=== PATIENT | male | born 1945 | race Caucasian/White ===

== ENCOUNTER 2017-05-13 12:15 | Outpatient (CLI) | payer OTHER | END 2017-05-13 12:34 | disposition home or self-care (01) | LOC: LAB 12:15 | DX: R97.20 Elevated prostate specific antigen [PSA] (principal) ==

== ENCOUNTER 2017-10-01 07:29 | Outpatient (CLI) | payer OTHER | END 2017-10-01 07:35 | disposition home or self-care (01) | LOC: SONOGRAMA 07:29 | DX: R97.20 Elevated prostate specific antigen [PSA] (principal) ==

== ENCOUNTER 2018-11-01 08:57 | Outpatient (CLI) | payer OTHER | END 2018-11-01 09:04 | disposition home or self-care (01) | LOC: LAB 08:57 | DX: R97.20 Elevated prostate specific antigen [PSA] (principal) ==

== ENCOUNTER 2018-11-11 07:28 | Outpatient (CLI) | payer OTHER | END 2018-11-11 07:31 | disposition home or self-care (01) | LOC: SONOGRAMA 07:28 | DX: C61 Malignant neoplasm of prostate (principal); R97.20 Elevated prostate specific antigen [PSA] ==

== ENCOUNTER 2018-12-20 08:14 | Outpatient (CLI) | payer OTHER | END 2018-12-20 08:16 | disposition home or self-care (01) | LOC: TOM 08:14 | DX: C61 Malignant neoplasm of prostate (principal) ==

== ENCOUNTER 2018-12-23 08:16 | Outpatient (CLI) | payer OTHER | END 2018-12-23 08:23 | disposition home or self-care (01) | LOC: NUCLEAR 08:16 | DX: C61 Malignant neoplasm of prostate (principal) | CPT/HCPCS: 78306; 78320; A9503 ==

== ENCOUNTER 2020-12-31 08:10 | Emergency (ER) | payer OTHER ==
[~2020-12-31] VITALS: Ht 170.2 cm; Wt 78.0 kg
[2020-12-31] MEDS ORDERED: ZYLOPRIM100 M1 PO (08:23)
[2020-12-31] MEDS ORDERED: LEVSIN/SL0.125 MG PO (19:46)
[2020-12-31] MEDS ORDERED: PEPCID AC20 MG PO (19:46)
== END 2020-12-31 20:15 | disposition home or self-care (01) ==
LOC: ER 08:10
DX: K52.89 Other specified noninfective gastroenteritis and colitis (principal); E86.0 Dehydration; E87.0 Hyperosmolality and hypernatremia; N39.0 Urinary tract infection, site not specified; B96.4 Proteus (mirabilis) (morganii) as the cause of diseases classified elsewhere; R31.0 Gross hematuria; Z03.818 Encounter for observation for suspected exposure to other biological agents ruled out